=== PATIENT | male | born 1950 | race Caucasian/White ===

== ENCOUNTER 2017-01-17 18:31 | Inpatient (IN) | payer MEDICARE ==
[~2017-01-17] VITALS: Ht 188 cm; Wt 79.4 kg
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
--- NOTE | ~2017-01-17 | ECHO ---
Transthoracic Echocardiography Report (TTE) Demographics Patient Name MELI VEGA Date of Study 01/19/2017 Patient Number [id number] Visit Number [id number] Date of 1950 Room Number G6203 Gender Male Number Age 66 year(s) Referring Mynor Bryan Treasury Specialist Dorota Tran [facility], Physician Luis TRIPATHI RVT Physician Interpreting Efstratiou Line Camera Operator Physician Simi Robles MD Supervising Ordering Guillermina TRIPATHI/MARGARETP Physician Ida TRIPATHI Nurse Stress Spacer Type Bar And Segment Conclusions Summary Technically difficult exam due to chest tube and subcutaneous emphysema Unable to visual a pericardial window. The estimated left ventricular ejection fraction is 55-60%. The left atrium appears to be mildly dilated. Possible pericardial effusion adjacent to RV and RA. Pleural effusion present. Procedure Type of Study TTE procedure:2D Echocardiogram. Procedure Date Date: 01/19/2017 Start: 04:40 AM Study Location: Inpatient Portable Technical Quality: Poor visualization due to poor acoustical window. Appropriate Use Criteria: 9 Patient Status: STAT Rhythm: Sinus tachycardia HR: 82 bpm BP: 97/59 mmHg M-Mode/2D Measurements LV Diastolic Dimension: 3.69 cm LV Septum Systolic: 2.07 cm LV Septum Diastolic: 1.33 cm LV PW Diastolic: 1.04 cm Cardiac Output: 6.5 l/min LA volume: 71 ml RV Diastolic Dimension: 3.11 cm LVOT: 2.1 cm LVOT VTI: 22.9 cm IVC Inspiration: 1.33 cm LV Stroke volume: 79.28 ml RV Base: 3.02 cm RV Mid: 2.55 cm RV Length: 4.07 cm TAPSE: 1.35 cm TDI-S': 13.6 cm/s Doppler Measurements AV Peak Velocity: 1.76 m/s MV Peak E-Wave: 0.95 m/s AV Peak Gradient: 12.39 mmHg MV Peak A-Wave: 0.86 m/s AV Mean Gradient: 7 mmHg MV E/A Ratio: 1.1 LVOT Peak Velocity: 1.35 m/s MV P1/2t: 65 msec PV Peak Velocity: 0.98 m/s E' Septal Velocity: 0.12 m/s PV Peak Gradient: 3.85 mmHg E' Lateral Velocity: 0.09 m/s MV E/E' Ratio: 11 Findings Left Ventricle Mild septal left ventricular hypertrophy. Diastolic function indeterminate. Right Ventricle Normal right ventricle structure and function. Left Atrium Difficult to visualize left atrium The left atrium appears to be mildly dilated. Right Atrium The right atrium is mildly dilated. Mitral Valve Mitral valve not well visualized Aortic Valve The aortic valve is mildly sclerotic. Tricuspid Valve The tricuspid valve is not well visualized. Pulmonic Valve The pulmonic valve is not well visualized. Pericardial Effusion Possible pericardial effusion. Miscellaneous Visualized portions of the aortic root and ascending aorta appear normal in size. Pleural Effusion Pleural effusion present. Signature dtt: Mine Nam dtd: 01/19/17 0440 Physician Self Edit
--- NOTE | ~2017-01-17 | OR ---
PATIENT'S NAME: MELI VEGA [facility] AGE: 66 Y [address] ROOM: [place] [address] LOCATION: GICU ADMIT DATE: 01/17/2017 OR/Procedure Report DISCHARGE DATE: FAMILY PHYSICIAN: Nick Wang MD ATTENDING PHYSICIAN: Irvin Lowe SURGEON: John Rizo MD COMMUNITY HE[facility] PROGRAM COORDINATOR: DATE OF PROCEDURE: 01/19/2017 LOCATION: This procedure was performed in the intensive care unit. PREOPERATIVE DIAGNOSIS: Need for vascular access. POSTOPERATIVE DIAGNOSIS: Need for vascular access. PROCEDURE PERFORMED: Placement of left subclavian triple-lumen catheter. COMPLICATIONS: None. DESCRIPTION OF PROCEDURE: After informed consent was obtained, the patient was placed in the supine position with a bump under his shoulder blades and in the Trendelenburg position. A liter bolus of IV fluids was initiated to help with venous distention. The left neck and chest were sterilely prepped and draped. A time-out was performed prior to initiation of the procedure. Local anesthetic consisting of 1% lidocaine was injected first in the left deltopectoral fossa. The left subclavian vein was accessed. On the first attempt, there was difficulty passing the wire. Multiple subsequent attempts to gain venous access were unsuccessful. Attempt at left internal jugular vein placement showed minimal distention of the internal jugular vein by ultrasound. Two attempts to gain access to the internal jugular vein in the left neck were also unsuccessful. Attention was then turned back to the left subclavian site. Venous access was obtained, and a wire was introduced without difficulty. Slight ectopy without hemodynamic compromise was created. The tract was dilated with a dilator sheath. A triple-lumen catheter was advanced over the wire in a Seldinger technique. This was advanced to 16 [address] in place. Sterile dressings were applied. The catheter was flushed and aspirated easily. A postprocedure x-ray showed the central line in the innominate vein and the catheter was cleared for use. JOHN RIZO MD CM/modl PATIENT'S NAME: MELI VEGA [facility] AGE: 66 Y [address] ROOM: [address] [address] LOCATION: GICU ADMIT DATE: 01/17/2017 OR/Procedure Report DISCHARGE DATE: FAMILY PHYSICIAN: Nick Wang MD ATTENDING PHYSICIAN: Irvin Lowe /[id number] d: 01/19/17 185 t: 02/19/17 1445, OPERATIVE SUMMARY
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
--- NOTE | ~2017-01-17 | OR ---
PATIENT'S NAME: MELI VEGA [facility] AGE: 66 Y [address] ROOM: [place] [address] LOCATION: GICU ADMIT DATE: 01/17/2017 OR/Procedure Report DISCHARGE DATE: FAMILY PHYSICIAN: Nick Wang MD ATTENDING PHYSICIAN: Irvin Lowe SURGEON: Herve Gamboa MD COMPUTER SOFTWARE ENGINEER: DATE OF PROCEDURE: 02/01/2017 PREOPERATIVE DIAGNOSIS: Persistent drainage from left yozuv-awi-vorj amputation stump. POSTOPERATIVE DIAGNOSIS: Persistent drainage from left ytwcs-jnx-[id number] amputation stump. PROCEDURE: Revision of left BKA stump with VAC placement. SUPERVISOR PIPELINE MAINTENANCE: Sil Carter. ANESTHESIA: General. ESTIMATED BLOOD LOSS: 25 mL. OPERATIVE FINDINGS: Just small areas of necrotic tissue of skin removed. No active source of bleeding noticed within the wound. Wound VAC placed with good suction. DESCRIPTION OF PROCEDURE: The patient was brought to the operating room, placed supine on the operating table, and prepped and draped in a sterile manner. The patient received preoperative antibiotics. Preoperative time-out was performed. We opened up the lateral aspect of the BKA flap stump and immediately were greeted by healthy-appearing muscle with very little granulation tissue. We sharply debrided this muscle to see if there were any active sources of bleeding or any reasons for why there was continuous leakage of fluid from there. We did not find any. We then copiously irrigated. There was also a small patch of skin on the natanael-rectum middle part of the flap which did not appear viable and we resected away exposing also again muscle below this. We sharply debrided this muscle and copiously irrigated this wound. We then packed it with vacuum sponge and then placed it under suction. There was good seal. The patient tolerated the procedure well and awoken in the operating room and transferred to the recovery room and back to the floor. PATIENT'S NAME: MELI VEGA [facility] AGE: 66 Y [address] ROOM: [place] [address] LOCATION: GICU ADMIT DATE: 01/17/2017 OR/Procedure Report DISCHARGE DATE: FAMILY PHYSICIAN: Nick Wang MD ATTENDING PHYSICIAN: Irvin Lowe MD ANGELLA YEN/dhaval /[id number] d: 02/01/171939 t: 02/03/17 1120, OPERATIVE SUMMARY
--- NOTE | ~2017-01-17 | ENPV ---
Vascular Upper Extremities Veins Procedure Demographics Patient Name MELI VEGA Date of Study 01/24/2017 Patient Number [id number] Gender Male Date of 1950 Age 66 Visit Number [id number] Height Weight Number Room Number [id number] BSA BMI Referring Kathleen Nick Medina Interpreting Cyril Belcher Physician Physician A MD Mynor Smith MD Physician Ordering Cyril Belcher Food Tray Assembler Physician A Unscrambler Tito Upton, RVT Conclusions Summary No evidence of deep vein thrombosis in the left upper extremity. Acute occlusive superficial thrombus is visible in the left basilic vein from the mid upper arm to the mid forearm. The left distal forearm basilic vein was not imaged secondary to lines and dressings, cannot rule out thrombus in this vein segment. The left upper arm cephalic vein was not visualized, however is patent in the forearm. Procedure Type of Study: Veins:Upper Extremities Veins, Upper Extremity Left. Indications for Study:Unilateral pain and edema. Additional Indications:Left upper extremity pain and edema Appropriate Use Criteria:9 Patient Status:Routine. Study Location:Inpatient Portable. Technical Quality:Adequate visualization. - Preliminary reported to: @1300. Velocities are measured in cm/s ; Diameters are measured in cm Right UE Vein Measurements 2D and Doppler Measurements + + + + +--------+ + !Location !Visualized !Compressibility !Thrombosis !Signal !Reflux ! + + + + +--------+ + !SCV !Yes ! !None !Phasic !No ! + + + + +--------+ + Left UE Vein Measurements 2D and Doppler Measurements + + + + +--------+--------+ !Location !Visualized !Compressibility !Thrombosis !Signal !Reflux ! + + + + +--------+--------+ !IJV !Yes !Yes !None !Phasic !No ! + + + + +--------+--------+ !SCV !Yes ! !None !Phasic !No ! + + + + +--------+--------+ !Innominate !Yes ! !None !Phasic !No ! + + + + +--------+--------+ !Axillary !Yes !Yes !None !Phasic !No ! + + + + +--------+--------+ !Brachial !Yes !Yes !None !Phasic !No ! + + + + +--------+--------+ !Radial !Yes !Yes !None ! ! ! + + + + +--------+--------+ !Ulnar !Yes !Yes !None ! ! ! + + + + +--------+--------+ !Basilic !Yes !No !Acute !Absent ! ! + + + + +--------+--------+ !Cephalic !Yes !Yes !None ! ! ! + + + + +--------+--------+ Signature dtt: Mine Nam dtd: 01/24/17 1158 Physician Self Edit
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
--- NOTE | ~2017-01-17 | ECHO ---
Transthoracic Echocardiography Report (TTE) Demographics Patient Name MELI VEGA Date of Study 01/29/2017 Patient Number [id number] Visit Number [id number] Date of 1950 Room Number [id number] Gender Male Number Age 66 year(s) Referring Mynor Bryan [employer] Derrick García RDCS, Physician Luis TRIPATHI RVT, RDMS, [facility] Physician Interpreting Cyril Belcher Conference Coordinator Physician Travis TRIPATHI Supervising Ordering Cyril Belcher MD/MLP Physician A Nurse [facility] Medical Billing Service Conclusions Summary Limited study. The estimated left ventricular ejection fraction is 65-70%. The left ventricle is normal in size . Normal wall thickness and systolic function. Normal right ventricle structure and function. Moderate biatrial enlargement. Small anterior pericardial effusion. There is no echocardiographic evidence of cardiac tamponade. Bilateral pleural effusions are present. chest tube is in place and prevents apical views. Procedure Type of Study TTE procedure:M-Mode, Doppler , Echo Limited w/o Contrast. Procedure Date Date: 01/29/2017 Start: 11:14 AM Study Location: Inpatient Portable Technical Quality: Excellent Additional Indications:Trauma, chest tube Patient Status: Routine HR: 67 bpm BP: 116/56 mmHg M-Mode/2D Measurements LV Diastolic Dimension: 4.49 cm LV Systolic Dimension: 1.86 cm LV Septum Diastolic: 0.89 cm LV PW Diastolic: 0.82 cm RV Diastolic Dimension: 2.75 cm Post Pericard Effusion: 0.6 cm Findings Left Ventricle The left ventricle is normal in size . Normal wall thickness and systolic function. Right Ventricle Normal right ventricle structure and function. Left Atrium The left atrium is mildly to moderately dilated. Right Atrium The right atrium is moderately dilated. Pericardial Effusion Small anterior pericardial effusion. There is no echocardiographic evidence of cardiac tamponade. Miscellaneous Visualized portions of the aortic root and ascending aorta appear normal in size. Pleural Effusion Bilateral pleural effusions are present. chest tube is in place and prevents apical views. Signature dtt: Mine Nam dtd: 01/29/17 1114 Physician Self Edit
[2017-01-17 18:45] LABS: HEMATOCRIT 30.1 % (37.0-53.0); HEMOGLOBIN 10.5 g/dL (11.0-16.0); MCH 33.3 pg (27.0-34.0); MCHC 34.9 gm/dL (32.0-36.5); MCV 95.6 fl (83.0-98.0); MPV 10.2 fl (9.4-12.4); PLATELET COUNT 204 K/uL (150-450); RBC 3.15 M/uL (3.50-5.50); RDW-CV 13.8 % (11.9-14.6)
[2017-01-17 18:46] LABS: WBC 17.7 K/uL (4.0-11.0)
[2017-01-17 18:54] LABS: INR - (THERAPEUTIC) 1.21 (0.92-1.07); PROTIME 12.7 SECONDS (9.8-11.4); PTT 24 SECONDS (25-32)
[2017-01-17 18:58] LABS: BLOOD UREA NITROGEN 29 mg/dL (6-24); CHLORIDE 111 mMol/L (96-110); CREATININE 1.3 mg/dL (0.6-1.3)
[2017-01-17 19:08] LABS: BANDED NEUTROPHIL # 2.1 K/uL (0.0-0.1); BANDED NEUTROPHILS % 12 %; LYMPHOCYTE # 2.8 K/uL (0.8-4.0); LYMPHOCYTE % 16 %; MONOCYTE # 0.9 K/uL (0.0-1.0); SEGMENTED NEUTROPHIL # 11.9 K/uL (1.4-9.0); SEGMENTED NEUTROPHIL % 67 %
[2017-01-17 19:23] LABS: ANION GAP 11.1 (10.0-19.0); PCO2 26 mmHg (35-45); PO2 88 mmHg (80-90); POTASSIUM 4.1 mMol/L (3.7-5.1); SODIUM 138 mMol/L (135-145)
[2017-01-17] MEDS ORDERED: IRON65 PO (23:47)
[2017-01-18 00:58] LABS: HEMATOCRIT 35.5 % (37.0-53.0); HEMOGLOBIN 12.4 g/dL (11.0-16.0)
[2017-01-18 04:05] LABS: BICARBONATE 21.6 mmol/L (18.0-23.0); PCO2 42 mmHg (35-45); PO2 196 mmHg (80-90)
[2017-01-18 04:06] LABS: POTASSIUM 4.8 mEq/L (3.7-5.1); SODIUM 135 mEq/L (135-145)
[2017-01-18 05:21] LABS: HEMATOCRIT 34.5 % (37.0-53.0); HEMOGLOBIN 12.1 g/dL (11.0-16.0); MCH 31.6 pg (27.0-34.0); MCHC 35.1 gm/dL (32.0-36.5); MCV 90.1 fl (83.0-98.0); MPV 10.4 fl (9.4-12.4); PLATELET COUNT 144 K/uL (150-450); RBC 3.83 M/uL (3.50-5.50); RDW-CV 17.2 % (11.9-14.6); WBC 22.1 K/uL (4.0-11.0)
[2017-01-18 05:35] LABS: ALBUMIN 2.7 gm/dL (3.5-5.0); CALCIUM 7.6 mg/dL (8.5-10.5); CREATININE 1.8 mg/dL (0.6-1.3); POTASSIUM 4.9 mMol/L (3.7-5.1); TOTAL BILIRUBIN 0.7 mg/dL (0.0-1.5)
[2017-01-18 05:45] LABS: ABSOLUTE NEUTROPHIL CT (ANC) 20.1 K/uL (1.4-9.0); ANION GAP 13.9 (10.0-19.0); BANDED NEUTROPHIL # 4.6 K/uL (0.0-0.1); BANDED NEUTROPHILS % 21 %; LYMPHOCYTE # 0.9 K/uL (0.8-4.0); LYMPHOCYTE % 4 %; MONOCYTE # 1.1 K/uL (0.0-1.0); SEGMENTED NEUTROPHIL # 15.5 K/uL (1.4-9.0); SEGMENTED NEUTROPHIL % 70 %; TOTAL PROTEIN 4.6 g/dL (6.0-8.4)
[2017-01-18 09:11] LABS: HEMATOCRIT 34.1 % (37.0-53.0); HEMOGLOBIN 11.8 g/dL (11.0-16.0)
[2017-01-18 10:04] LABS: HEMATOCRIT 31.6 % (37.0-53.0); HEMOGLOBIN 11.1 g/dL (11.0-16.0)
[2017-01-18 16:02] LABS: HEMATOCRIT 31.3 % (37.0-53.0)
[2017-01-18 21:47] LABS: HEMATOCRIT 30.9 % (37.0-53.0); HEMOGLOBIN 10.6 g/dL (11.0-16.0)
[2017-01-19 03:28] LABS: HEMATOCRIT 29.5 % (37.0-53.0); HEMOGLOBIN 10.1 g/dL (11.0-16.0)
[2017-01-19 03:41] LABS: ANION GAP 12.6 (10.0-19.0); CALCIUM 7.3 mg/dL (8.5-10.5); POTASSIUM 5.6 mMol/L (3.7-5.1)
[2017-01-19 06:18] LABS: HEMATOCRIT 29.5 % (37.0-53.0); HEMOGLOBIN 10.1 g/dL (11.0-16.0); MCH 31.4 pg (27.0-34.0); MCHC 34.2 gm/dL (32.0-36.5); MCV 91.6 fl (83.0-98.0); MPV 10.8 fl (9.4-12.4); PLATELET COUNT 109 K/uL (150-450); RBC 3.22 M/uL (3.50-5.50); RDW-CV 17.3 % (11.9-14.6)
[2017-01-19 07:15] LABS: LYMPHOCYTE # 0.8 K/uL (0.8-4.0); LYMPHOCYTE % 4 %; MONOCYTE # 1.3 K/uL (0.0-1.0); SEGMENTED NEUTROPHIL # 13.7 K/uL (1.4-9.0); SEGMENTED NEUTROPHIL % 65 %
[2017-01-19 07:17] LABS: ABSOLUTE NEUTROPHIL CT (ANC) 18.9 K/uL (1.4-9.0); BANDED NEUTROPHIL # 5.3 K/uL (0.0-0.1); BANDED NEUTROPHILS % 25 %
[2017-01-19 07:53] LABS: ALBUMIN 2.5 gm/dL (3.5-5.0); CALCIUM 8.3 mg/dL (8.5-10.5); CREATININE 1.8 mg/dL (0.6-1.3)
[2017-01-19 08:10] LABS: ANION GAP 11.5 (10.0-19.0)
[2017-01-19 08:11] LABS: POTASSIUM 5.5 mMol/L (3.7-5.1); TOTAL BILIRUBIN 0.4 mg/dL (0.0-1.5); TOTAL PROTEIN 4.7 g/dL (6.0-8.4)
[2017-01-19 09:52] LABS: HEMATOCRIT 25.3 % (37.0-53.0); HEMOGLOBIN 8.9 g/dL (11.0-16.0)
[2017-01-19 09:56] LABS: ALBUMIN 2.3 gm/dL (3.5-5.0); CALCIUM 7.7 mg/dL (8.5-10.5); CREATININE 1.5 mg/dL (0.6-1.3); TOTAL BILIRUBIN 0.4 mg/dL (0.0-1.5)
[2017-01-19 10:03] LABS: ANION GAP 12.5 (10.0-19.0); TOTAL PROTEIN 4.2 g/dL (6.0-8.4)
[2017-01-19 10:04] LABS: POTASSIUM 5.5 mMol/L (3.7-5.1)
[2017-01-19 13:50] LABS: ANION GAP 8.8 (10.0-19.0); CREATININE 1.2 mg/dL (0.6-1.3); POTASSIUM 4.8 mMol/L (3.7-5.1)
[2017-01-19 17:49] LABS: HEMATOCRIT 22.5 % (37.0-53.0); MCH 31.3 pg (27.0-34.0); MCHC 33.8 gm/dL (32.0-36.5); MCV 92.6 fl (83.0-98.0); MPV 10.7 fl (9.4-12.4); PLATELET COUNT 102 K/uL (150-450); RBC 2.43 M/uL (3.50-5.50); RDW-CV 16.8 % (11.9-14.6)
[2017-01-19 17:50] LABS: HEMOGLOBIN 7.6 g/dL (11.0-16.0); WBC 16.3 K/uL (4.0-11.0)
[2017-01-19 18:01] LABS: INR - (THERAPEUTIC) 1.02 (0.92-1.07); PROTIME 10.7 SECONDS (9.8-11.4); PTT 28 SECONDS (25-32)
[2017-01-19 18:25] LABS: ABSOLUTE NEUTROPHIL CT (ANC) 15.3 K/uL (1.4-9.0); BANDED NEUTROPHIL # 4.6 K/uL (0.0-0.1); BANDED NEUTROPHILS % 28 %; LYMPHOCYTE # 0.3 K/uL (0.8-4.0); LYMPHOCYTE % 2 %; MONOCYTE # 0.7 K/uL (0.0-1.0); SEGMENTED NEUTROPHIL # 10.8 K/uL (1.4-9.0); SEGMENTED NEUTROPHIL % 66 %
[2017-01-20 04:56] LABS: ALBUMIN 2.2 gm/dL (3.5-5.0); ANION GAP 7.7 (10.0-19.0); CALCIUM 7.3 mg/dL (8.5-10.5); CREATININE 0.9 mg/dL (0.6-1.3); POTASSIUM 4.7 mMol/L (3.7-5.1); TOTAL BILIRUBIN 0.6 mg/dL (0.0-1.5); TOTAL PROTEIN 4.3 g/dL (6.0-8.4)
[2017-01-20 05:00] LABS: HEMATOCRIT 25.6 % (37.0-53.0); MCH 31.1 pg (27.0-34.0); MCHC 35.2 gm/dL (32.0-36.5); MCV 88.6 fl (83.0-98.0); MPV 10.8 fl (9.4-12.4); PLATELET COUNT 95 K/uL (150-450); RBC 2.89 M/uL (3.50-5.50); RDW-CV 17.1 % (11.9-14.6); WBC 13.5 K/uL (4.0-11.0)
[2017-01-20 05:41] LABS: ABSOLUTE NEUTROPHIL CT (ANC) 12.2 K/uL (1.4-9.0); BANDED NEUTROPHIL # 2.8 K/uL (0.0-0.1); BANDED NEUTROPHILS % 21 %; LYMPHOCYTE # 1.1 K/uL (0.8-4.0); LYMPHOCYTE % 8 %; MONOCYTE # 0.3 K/uL (0.0-1.0); SEGMENTED NEUTROPHIL # 9.3 K/uL (1.4-9.0); SEGMENTED NEUTROPHIL % 69 %
[2017-01-21 05:52] LABS: HEMATOCRIT 25.2 % (37.0-53.0); HEMOGLOBIN 8.6 g/dL (11.0-16.0); MCH 30.7 pg (27.0-34.0); MCHC 34.1 gm/dL (32.0-36.5); MPV 10.7 fl (9.4-12.4); PLATELET COUNT 114 K/uL (150-450); RDW-CV 17.2 % (11.9-14.6); WBC 11.2 K/uL (4.0-11.0)
[2017-01-21 05:54] LABS: ANION GAP 7.5 (10.0-19.0); BLOOD UREA NITROGEN 30 mg/dL (6-24); CALCIUM 7.1 mg/dL (8.5-10.5); CHLORIDE 110 mMol/L (96-110); CO2 29 mMol/L (22-32); CREATININE 0.8 mg/dL (0.6-1.3); POTASSIUM 4.5 mMol/L (3.7-5.1); SODIUM 142 mMol/L (135-145)
[2017-01-21 06:17] LABS: ABSOLUTE NEUTROPHIL CT (ANC) 10.4 K/uL (1.4-9.0); BANDED NEUTROPHILS % 9 %; LYMPHOCYTE # 0.3 K/uL (0.8-4.0); LYMPHOCYTE % 3 %; MONOCYTE # 0.4 K/uL (0.0-1.0); SEGMENTED NEUTROPHIL # 9.4 K/uL (1.4-9.0); SEGMENTED NEUTROPHIL % 84 %
[2017-01-22 05:24] LABS: HEMATOCRIT 27.6 % (37.0-53.0); HEMOGLOBIN 9.1 g/dL (11.0-16.0); MCV 91.1 fl (83.0-98.0); MPV 10.1 fl (9.4-12.4); PLATELET COUNT 155 K/uL (150-450); RBC 3.03 M/uL (3.50-5.50); WBC 12.1 K/uL (4.0-11.0)
[2017-01-22 05:30] LABS: ANION GAP 10.3 (10.0-19.0); BLOOD UREA NITROGEN 28 mg/dL (6-24); CALCIUM 7.1 mg/dL (8.5-10.5); CHLORIDE 108 mMol/L (96-110); CO2 29 mMol/L (22-32); CREATININE 0.8 mg/dL (0.6-1.3); POTASSIUM 4.3 mMol/L (3.7-5.1); SODIUM 143 mMol/L (135-145)
[2017-01-22 06:05] LABS: ABSOLUTE NEUTROPHIL CT (ANC) 10.5 K/uL (1.4-9.0); BANDED NEUTROPHIL # 0.7 K/uL (0.0-0.1); BANDED NEUTROPHILS % 6 %; LYMPHOCYTE # 0.7 K/uL (0.8-4.0); LYMPHOCYTE % 6 %; MONOCYTE # 0.7 K/uL (0.0-1.0); SEGMENTED NEUTROPHIL # 9.8 K/uL (1.4-9.0); SEGMENTED NEUTROPHIL % 81 %
[2017-01-23 07:55] LABS: BASOPHIL % 0.2 %; EOSINOPHIL # 0.2 K/uL (0.0-0.5); EOSINOPHIL % 1.6 %; HEMATOCRIT 28.8 % (37.0-53.0); HEMOGLOBIN 9.7 g/dL (11.0-16.0); IMMATURE GRANULOCYTE # 0.2 K/uL (0.0-0.3); IMMATURE GRANULOCYTE % 1.6 %; LYMPHOCYTE # 0.8 K/uL (0.8-4.0); LYMPHOCYTE % 6.4 %; MCH 31.2 pg (27.0-34.0); MCHC 33.7 gm/dL (32.0-36.5); MCV 92.6 fl (83.0-98.0); MONOCYTE # 0.9 K/uL (0.0-1.0); MONOCYTE % 7.2 %; MPV 10.2 fl (9.4-12.4); NEUTROPHIL # (ANC) 10.6 K/uL (1.4-9.0); NRBC % 0 /100WBC (0-0.00); RBC 3.11 M/uL (3.50-5.50); RDW-CV 16.3 % (11.9-14.6); WBC 12.7 K/uL (4.0-11.0)
[2017-01-23 08:03] LABS: PLATELET COUNT 207 K/uL (150-450)
[2017-01-23 08:19] LABS: ALK PHOS 50 IU/L (33-138); ALT 55 IU/L (12-78); ANION GAP 9.3 (10.0-19.0); AST 94 IU/L (10-40); BLOOD UREA NITROGEN 27 mg/dL (6-24); CHLORIDE 107 mMol/L (96-110); CO2 30 mMol/L (22-32); CREATININE 0.8 mg/dL (0.6-1.3); POTASSIUM 4.3 mMol/L (3.7-5.1); SODIUM 142 mMol/L (135-145); TOTAL BILIRUBIN 0.6 mg/dL (0.0-1.5)
[2017-01-23 08:26] LABS: ALBUMIN 1.6 gm/dL (3.5-5.0); CALCIUM 7.1 mg/dL (8.5-10.5); TOTAL PROTEIN 4.3 g/dL (6.0-8.4)
[2017-01-24 05:02] LABS: BASOPHIL % 0.1 %; EOSINOPHIL # 0.1 K/uL (0.0-0.5); EOSINOPHIL % 1.3 %; HEMATOCRIT 29.3 % (37.0-53.0); HEMOGLOBIN 9.9 g/dL (11.0-16.0); IMMATURE GRANULOCYTE # 0.2 K/uL (0.0-0.3); IMMATURE GRANULOCYTE % 1.7 %; LYMPHOCYTE # 0.8 K/uL (0.8-4.0); LYMPHOCYTE % 9.7 %; MCH 31.2 pg (27.0-34.0); MCHC 33.8 gm/dL (32.0-36.5); MCV 92.4 fl (83.0-98.0); MONOCYTE # 0.6 K/uL (0.0-1.0); MONOCYTE % 7.5 %; MPV 10.3 fl (9.4-12.4); NEUTROPHIL # (ANC) 6.9 K/uL (1.4-9.0); NEUTROPHIL % 79.7 %; NRBC % 0 /100WBC (0-0.00); PLATELET COUNT 257 K/uL (150-450); RBC 3.17 M/uL (3.50-5.50); RDW-CV 15.9 % (11.9-14.6); WBC 8.6 K/uL (4.0-11.0)
[2017-01-24 05:13] LABS: ANION GAP 9.5 (10.0-19.0); BLOOD UREA NITROGEN 21 mg/dL (6-24); CHLORIDE 107 mMol/L (96-110); CO2 28 mMol/L (22-32); CREATININE 0.8 mg/dL (0.6-1.3); MAGNESIUM 2.3 mg/dL (1.8-2.6); PHOSPHORUS 2.6 mg/dL (2.5-4.9); POTASSIUM 4.5 mMol/L (3.7-5.1); SODIUM 140 mMol/L (135-145)
[2017-01-24 05:14] LABS: ALBUMIN 1.6 gm/dL (3.5-5.0); CALCIUM 7.1 mg/dL (8.5-10.5)
[2017-01-25 05:19] LABS: BASOPHIL % 0.2 %; EOSINOPHIL # 0.1 K/uL (0.0-0.5); EOSINOPHIL % 0.7 %; HEMATOCRIT 27.8 % (37.0-53.0); HEMOGLOBIN 9.2 g/dL (11.0-16.0); IMMATURE GRANULOCYTE # 0.2 K/uL (0.0-0.3); IMMATURE GRANULOCYTE % 1.9 %; LYMPHOCYTE # 0.6 K/uL (0.8-4.0); LYMPHOCYTE % 5.9 %; MCH 30.4 pg (27.0-34.0); MCHC 33.1 gm/dL (32.0-36.5); MCV 91.7 fl (83.0-98.0); MONOCYTE # 0.7 K/uL (0.0-1.0); MPV 9.8 fl (9.4-12.4); NEUTROPHIL # (ANC) 7.9 K/uL (1.4-9.0); NEUTROPHIL % 84.3 %; NRBC % 0 /100WBC (0-0.00); RBC 3.03 M/uL (3.50-5.50); RDW-CV 15.8 % (11.9-14.6); WBC 9.4 K/uL (4.0-11.0)
[2017-01-25 05:21] LABS: PLATELET COUNT 313 K/uL (150-450)
[2017-01-25 05:37] LABS: ANION GAP 11.3 (10.0-19.0); BLOOD UREA NITROGEN 20 mg/dL (6-24); CHLORIDE 109 mMol/L (96-110); CO2 26 mMol/L (22-32); CREATININE 0.8 mg/dL (0.6-1.3); POTASSIUM 4.3 mMol/L (3.7-5.1); SODIUM 142 mMol/L (135-145)
[2017-01-26 06:22] LABS: BASOPHIL % 0.1 %; EOSINOPHIL # 0.1 K/uL (0.0-0.5); EOSINOPHIL % 1.2 %; HEMATOCRIT 28.5 % (37.0-53.0); HEMOGLOBIN 9.5 g/dL (11.0-16.0); IMMATURE GRANULOCYTE # 0.1 K/uL (0.0-0.3); IMMATURE GRANULOCYTE % 1.3 %; LYMPHOCYTE # 0.6 K/uL (0.8-4.0); MCH 31.1 pg (27.0-34.0); MCHC 33.3 gm/dL (32.0-36.5); MCV 93.4 fl (83.0-98.0); MONOCYTE # 0.6 K/uL (0.0-1.0); MONOCYTE % 6.4 %; MPV 9.8 fl (9.4-12.4); NEUTROPHIL # (ANC) 8.4 K/uL (1.4-9.0); NRBC % 0 /100WBC (0-0.00); PLATELET COUNT 374 K/uL (150-450); RBC 3.05 M/uL (3.50-5.50); RDW-CV 16.1 % (11.9-14.6); WBC 9.9 K/uL (4.0-11.0)
[2017-01-27 07:31] LABS: BASOPHIL % 0.2 %; EOSINOPHIL # 0.2 K/uL (0.0-0.5); EOSINOPHIL % 1.3 %; HEMATOCRIT 30.2 % (37.0-53.0); IMMATURE GRANULOCYTE # 0.2 K/uL (0.0-0.3); IMMATURE GRANULOCYTE % 1.3 %; LYMPHOCYTE # 0.6 K/uL (0.8-4.0); LYMPHOCYTE % 5.1 %; MCH 31.2 pg (27.0-34.0); MCHC 33.1 gm/dL (32.0-36.5); MCV 94.1 fl (83.0-98.0); MONOCYTE # 0.7 K/uL (0.0-1.0); MONOCYTE % 5.5 %; MPV 9.8 fl (9.4-12.4); NEUTROPHIL # (ANC) 10.9 K/uL (1.4-9.0); NEUTROPHIL % 86.6 %; NRBC % 0 /100WBC (0-0.00); PLATELET COUNT 477 K/uL (150-450); RBC 3.21 M/uL (3.50-5.50); RDW-CV 16.7 % (11.9-14.6); WBC 12.6 K/uL (4.0-11.0)
[2017-01-27 07:44] LABS: ANION GAP 9.3 (10.0-19.0); BLOOD UREA NITROGEN 20 mg/dL (6-24); CHLORIDE 114 mMol/L (96-110); CO2 25 mMol/L (22-32); CREATININE 0.7 mg/dL (0.6-1.3); MAGNESIUM 2.1 mg/dL (1.8-2.6); PHOSPHORUS 2.4 mg/dL (2.5-4.9); POTASSIUM 4.3 mMol/L (3.7-5.1); SODIUM 144 mMol/L (135-145)
[2017-01-27 07:45] LABS: ALBUMIN 1.7 gm/dL (3.5-5.0); CALCIUM 7.2 mg/dL (8.5-10.5)
[2017-01-28 08:59] LABS: BASOPHIL % 0.1 %; EOSINOPHIL # 0.2 K/uL (0.0-0.5); EOSINOPHIL % 1.4 %; HEMATOCRIT 32.2 % (37.0-53.0); HEMOGLOBIN 10.6 g/dL (11.0-16.0); IMMATURE GRANULOCYTE # 0.1 K/uL (0.0-0.3); LYMPHOCYTE # 0.7 K/uL (0.8-4.0); LYMPHOCYTE % 5.1 %; MCH 31.4 pg (27.0-34.0); MCHC 32.9 gm/dL (32.0-36.5); MCV 95.3 fl (83.0-98.0); MONOCYTE # 0.6 K/uL (0.0-1.0); MONOCYTE % 4.5 %; MPV 9.4 fl (9.4-12.4); NEUTROPHIL # (ANC) 12.5 K/uL (1.4-9.0); NEUTROPHIL % 87.9 %; NRBC % 0 /100WBC (0-0.00); RBC 3.38 M/uL (3.50-5.50); RDW-CV 17.3 % (11.9-14.6); WBC 14.2 K/uL (4.0-11.0)
[2017-01-28 09:02] LABS: PLATELET COUNT 585 K/uL (150-450)
[2017-01-28 09:12] LABS: ANION GAP 10.1 (10.0-19.0); BLOOD UREA NITROGEN 19 mg/dL (6-24); CHLORIDE 111 mMol/L (96-110); CO2 26 mMol/L (22-32); CREATININE 0.8 mg/dL (0.6-1.3); POTASSIUM 4.1 mMol/L (3.7-5.1); SODIUM 143 mMol/L (135-145)
[2017-01-28 09:13] LABS: CALCIUM 7.3 mg/dL (8.5-10.5)
[2017-01-29 09:08] LABS: BASOPHIL % 0.2 %; EOSINOPHIL # 0.1 K/uL (0.0-0.5); HEMOGLOBIN 10.1 g/dL (11.0-16.0); IMMATURE GRANULOCYTE # 0.1 K/uL (0.0-0.3); IMMATURE GRANULOCYTE % 0.9 %; LYMPHOCYTE # 0.8 K/uL (0.8-4.0); LYMPHOCYTE % 5.3 %; MCH 31.4 pg (27.0-34.0); MCHC 32.6 gm/dL (32.0-36.5); MCV 96.3 fl (83.0-98.0); MONOCYTE # 0.7 K/uL (0.0-1.0); MONOCYTE % 4.9 %; MPV 9.3 fl (9.4-12.4); NEUTROPHIL # (ANC) 12.6 K/uL (1.4-9.0); NEUTROPHIL % 87.7 %; NRBC % 0 /100WBC (0-0.00); PLATELET COUNT 631 K/uL (150-450); RBC 3.22 M/uL (3.50-5.50); RDW-CV 17.5 % (11.9-14.6); WBC 14.4 K/uL (4.0-11.0)
[2017-01-29 09:22] LABS: ANION GAP 10.1 (10.0-19.0); CREATININE 0.9 mg/dL (0.6-1.3); POTASSIUM 4.1 mMol/L (3.7-5.1)
[2017-01-29 09:23] LABS: CALCIUM 7.4 mg/dL (8.5-10.5)
[2017-01-29 11:32] LABS: TOTAL BILIRUBIN 0.6 mg/dL (0.0-1.5)
[2017-01-29 11:33] LABS: ALBUMIN 1.8 gm/dL (3.5-5.0); TOTAL PROTEIN 4.3 g/dL (6.0-8.4)
[2017-01-30 09:20] LABS: BASOPHIL % 0.2 %; EOSINOPHIL # 0.1 K/uL (0.0-0.5); EOSINOPHIL % 0.9 %; HEMATOCRIT 31.1 % (37.0-53.0); IMMATURE GRANULOCYTE # 0.1 K/uL (0.0-0.3); IMMATURE GRANULOCYTE % 0.8 %; LYMPHOCYTE # 0.9 K/uL (0.8-4.0); LYMPHOCYTE % 6.5 %; MCH 31.1 pg (27.0-34.0); MCHC 32.2 gm/dL (32.0-36.5); MCV 96.6 fl (83.0-98.0); MONOCYTE # 0.7 K/uL (0.0-1.0); MONOCYTE % 5.1 %; MPV 8.8 fl (9.4-12.4); NEUTROPHIL # (ANC) 12.3 K/uL (1.4-9.0); NEUTROPHIL % 86.5 %; NRBC % 0 /100WBC (0-0.00); PLATELET COUNT 658 K/uL (150-450); RBC 3.22 M/uL (3.50-5.50); RDW-CV 18.1 % (11.9-14.6); WBC 14.2 K/uL (4.0-11.0)
[2017-01-30 09:32] LABS: ANION GAP 11.1 (10.0-19.0); CREATININE 0.9 mg/dL (0.6-1.3); POTASSIUM 4.1 mMol/L (3.7-5.1)
[2017-01-30 09:38] LABS: CALCIUM 7.4 mg/dL (8.5-10.5)
[2017-02-01 05:15] LABS: BASOPHIL % 0.3 %; EOSINOPHIL # 0.2 K/uL (0.0-0.5); EOSINOPHIL % 2.4 %; HEMATOCRIT 29.5 % (37.0-53.0); HEMOGLOBIN 9.6 g/dL (11.0-16.0); IMMATURE GRANULOCYTE # 0.1 K/uL (0.0-0.3); IMMATURE GRANULOCYTE % 0.7 %; LYMPHOCYTE # 0.8 K/uL (0.8-4.0); LYMPHOCYTE % 9.1 %; MCH 31.8 pg (27.0-34.0); MCHC 32.5 gm/dL (32.0-36.5); MCV 97.7 fl (83.0-98.0); MONOCYTE # 0.8 K/uL (0.0-1.0); MONOCYTE % 8.6 %; MPV 9.1 fl (9.4-12.4); NEUTROPHIL # (ANC) 7.3 K/uL (1.4-9.0); NEUTROPHIL % 78.9 %; NRBC % 0 /100WBC (0-0.00); PLATELET COUNT 643 K/uL (150-450); RBC 3.02 M/uL (3.50-5.50); WBC 9.2 K/uL (4.0-11.0)
[2017-02-01 05:28] LABS: ANION GAP 9.3 (10.0-19.0); BLOOD UREA NITROGEN 21 mg/dL (6-24); CHLORIDE 108 mMol/L (96-110); CO2 28 mMol/L (22-32); CREATININE 0.8 mg/dL (0.6-1.3); POTASSIUM 4.3 mMol/L (3.7-5.1); SODIUM 141 mMol/L (135-145)
[2017-02-01 05:31] LABS: CALCIUM 7.2 mg/dL (8.5-10.5)
[2017-02-02 05:58] LABS: BASOPHIL % 0.2 %; EOSINOPHIL % 0.2 %; HEMATOCRIT 28.5 % (37.0-53.0); HEMOGLOBIN 9.2 g/dL (11.0-16.0); IMMATURE GRANULOCYTE % 0.4 %; LYMPHOCYTE # 0.6 K/uL (0.8-4.0); LYMPHOCYTE % 6.9 %; MCH 31.7 pg (27.0-34.0); MCHC 32.3 gm/dL (32.0-36.5); MCV 98.3 fl (83.0-98.0); MONOCYTE # 0.6 K/uL (0.0-1.0); MONOCYTE % 7.6 %; MPV 9.2 fl (9.4-12.4); NEUTROPHIL # (ANC) 6.9 K/uL (1.4-9.0); NEUTROPHIL % 84.7 %; NRBC % 0 /100WBC (0-0.00); PLATELET COUNT 598 K/uL (150-450); RDW-CV 18.2 % (11.9-14.6); WBC 8.2 K/uL (4.0-11.0)
[2017-02-02 06:16] LABS: ANION GAP 9.3 (10.0-19.0); BLOOD UREA NITROGEN 20 mg/dL (6-24); CALCIUM 7.5 mg/dL (8.5-10.5); CHLORIDE 108 mMol/L (96-110); CO2 28 mMol/L (22-32); CREATININE 0.8 mg/dL (0.6-1.3); POTASSIUM 4.3 mMol/L (3.7-5.1); SODIUM 141 mMol/L (135-145)
[2017-02-03 05:41] LABS: ANION GAP 10.4 (10.0-19.0); CALCIUM 7.1 mg/dL (8.5-10.5); CREATININE 0.9 mg/dL (0.6-1.3); POTASSIUM 4.4 mMol/L (3.7-5.1)
[2017-02-03 05:57] LABS: BASOPHIL % 0.4 %; EOSINOPHIL # 0.2 K/uL (0.0-0.5); EOSINOPHIL % 2.1 %; HEMATOCRIT 30.7 % (37.0-53.0); HEMOGLOBIN 10.1 g/dL (11.0-16.0); IMMATURE GRANULOCYTE % 0.5 %; LYMPHOCYTE # 0.8 K/uL (0.8-4.0); LYMPHOCYTE % 9.7 %; MCH 32.2 pg (27.0-34.0); MCHC 32.9 gm/dL (32.0-36.5); MCV 97.8 fl (83.0-98.0); MONOCYTE # 0.7 K/uL (0.0-1.0); MONOCYTE % 8.8 %; NEUTROPHIL # (ANC) 6.1 K/uL (1.4-9.0); NEUTROPHIL % 78.5 %; NRBC % 0 /100WBC (0-0.00); PLATELET COUNT 626 K/uL (150-450); RBC 3.14 M/uL (3.50-5.50); RDW-CV 18.6 % (11.9-14.6); WBC 7.8 K/uL (4.0-11.0)
[2017-02-05 04:52] LABS: BASOPHIL % 0.4 %; EOSINOPHIL # 0.2 K/uL (0.0-0.5); HEMATOCRIT 31.8 % (37.0-53.0); HEMOGLOBIN 10.3 g/dL (11.0-16.0); IMMATURE GRANULOCYTE % 0.4 %; LYMPHOCYTE # 0.9 K/uL (0.8-4.0); LYMPHOCYTE % 11.6 %; MCHC 32.4 gm/dL (32.0-36.5); MCV 98.8 fl (83.0-98.0); MONOCYTE # 0.6 K/uL (0.0-1.0); MONOCYTE % 8.5 %; NEUTROPHIL # (ANC) 5.8 K/uL (1.4-9.0); NEUTROPHIL % 77.1 %; NRBC % 0 /100WBC (0-0.00); PLATELET COUNT 590 K/uL (150-450); RBC 3.22 M/uL (3.50-5.50); RDW-CV 18.6 % (11.9-14.6); WBC 7.6 K/uL (4.0-11.0)
[2017-02-05 05:05] LABS: ANION GAP 9.5 (10.0-19.0); BLOOD UREA NITROGEN 16 mg/dL (6-24); CALCIUM 7.5 mg/dL (8.5-10.5); CHLORIDE 109 mMol/L (96-110); CO2 28 mMol/L (22-32); CREATININE 0.7 mg/dL (0.6-1.3); POTASSIUM 4.5 mMol/L (3.7-5.1); SODIUM 142 mMol/L (135-145)
[2017-02-06 05:58] LABS: ANION GAP 9.4 (10.0-19.0); BLOOD UREA NITROGEN 18 mg/dL (6-24); CHLORIDE 110 mMol/L (96-110); CO2 27 mMol/L (22-32); CREATININE 0.7 mg/dL (0.6-1.3); POTASSIUM 4.4 mMol/L (3.7-5.1); SODIUM 142 mMol/L (135-145)
[2017-02-06 05:59] LABS: CALCIUM 7.4 mg/dL (8.5-10.5)
[2017-02-06 06:20] LABS: BASOPHIL % 0.4 %; EOSINOPHIL # 0.2 K/uL (0.0-0.5); EOSINOPHIL % 2.2 %; HEMATOCRIT 30.4 % (37.0-53.0); HEMOGLOBIN 9.7 g/dL (11.0-16.0); IMMATURE GRANULOCYTE % 0.5 %; LYMPHOCYTE # 0.8 K/uL (0.8-4.0); MCH 31.4 pg (27.0-34.0); MCHC 31.9 gm/dL (32.0-36.5); MCV 98.4 fl (83.0-98.0); MONOCYTE # 0.6 K/uL (0.0-1.0); MONOCYTE % 7.9 %; MPV 8.9 fl (9.4-12.4); NEUTROPHIL # (ANC) 5.9 K/uL (1.4-9.0); NRBC % 0 /100WBC (0-0.00); PLATELET COUNT 560 K/uL (150-450); RBC 3.09 M/uL (3.50-5.50); RDW-CV 18.4 % (11.9-14.6); WBC 7.6 K/uL (4.0-11.0)
[2017-02-07 04:29] LABS: BASOPHIL % 0.3 %; EOSINOPHIL # 0.2 K/uL (0.0-0.5); EOSINOPHIL % 2.1 %; HEMATOCRIT 30.3 % (37.0-53.0); HEMOGLOBIN 9.8 g/dL (11.0-16.0); IMMATURE GRANULOCYTE % 0.5 %; LYMPHOCYTE # 1.1 K/uL (0.8-4.0); LYMPHOCYTE % 14.1 %; MCH 32.6 pg (27.0-34.0); MCHC 32.3 gm/dL (32.0-36.5); MCV 100.7 fl (83.0-98.0); MONOCYTE # 0.6 K/uL (0.0-1.0); MONOCYTE % 8.5 %; NEUTROPHIL # (ANC) 5.6 K/uL (1.4-9.0); NEUTROPHIL % 74.5 %; NRBC % 0 /100WBC (0-0.00); PLATELET COUNT 500 K/uL (150-450); RBC 3.01 M/uL (3.50-5.50); RDW-CV 18.3 % (11.9-14.6); WBC 7.5 K/uL (4.0-11.0)
[2017-02-07 04:45] LABS: ANION GAP 8.7 (10.0-19.0); BLOOD UREA NITROGEN 21 mg/dL (6-24); CHLORIDE 109 mMol/L (96-110); CO2 30 mMol/L (22-32); CREATININE 0.8 mg/dL (0.6-1.3); POTASSIUM 4.7 mMol/L (3.7-5.1); SODIUM 143 mMol/L (135-145)
[2017-02-07 04:46] LABS: CALCIUM 7.4 mg/dL (8.5-10.5)
== END 2017-02-07 09:22 | DRG 957 ==
LOC: GACC 18:31 → GICU 19:09 → G3N 02-04 15:35
PROVIDERS: Anesthesiology; Emergency Medicine; Internal Medicine; Internal Medicine Cardiovascular Disease; Physician Assistant; ADMIT Surgery
PROC: 0Y6J0Z3 Detachment at Left Lower Leg, Low, Open Approach (ICD-10-PCS; principal; 2017-01-17)
PROC: 05H633Z Insertion of Infusion Device into Left Subclavian Vein, Percutaneous Approach (ICD-10-PCS; 2017-01-19)
PROC: 0QS Lower Bones, Reposition (ICD-10-PCS; 2017-01-20)
PROC: 0HQLXZZ Repair Left Lower Leg Skin, External Approach (ICD-10-PCS; 2017-02-01)
DX: S06.9X0A Unspecified intracranial injury without loss of consciousness, initial encounter (principal); S27.2XXA Traumatic hemopneumothorax, initial encounter; J69.0 Pneumonitis due to inhalation of food and vomit; S82.292B Other fracture of shaft of left tibia, initial encounter for open fracture type I or II; S32.492A Other specified fracture of left acetabulum, initial encounter for closed fracture; N17.9 Acute kidney failure, unspecified; S36.113A Laceration of liver, unspecified degree, initial encounter; I95.9 Hypotension, unspecified; S32.018A Other fracture of first lumbar vertebra, initial encounter for closed fracture; M62.82 Rhabdomyolysis; I30.9 Acute pericarditis, unspecified; S22.42XA Multiple fractures of ribs, left side, initial encounter for closed fracture; S32.028A Other fracture of second lumbar vertebra, initial encounter for closed fracture; S32.038A Other fracture of third lumbar vertebra, initial encounter for closed fracture; S32.048A Other fracture of fourth lumbar vertebra, initial encounter for closed fracture; S32.058A Other fracture of fifth lumbar vertebra, initial encounter for closed fracture; S32.19XA Other fracture of sacrum, initial encounter for closed fracture; D62 Acute posthemorrhagic anemia; R65.10 Systemic inflammatory response syndrome (SIRS) of non-infectious origin without acute organ dysfunction; V86.09XA Driver of other special all-terrain or other off-road motor vehicle injured in traffic accident, initial encounter; Y93.I9 Activity, other involving external motion; Y92.488 Other paved roadways as the place of occurrence of the external cause; E78.5 Hyperlipidemia, unspecified; E83.39 Other disorders of phosphorus metabolism; I48.91 Unspecified atrial fibrillation
CPT/HCPCS: C1713; C1751; C9113; G0480; J0131; J0282; J0610; J0690; J1160; J1170; J1630; J1644; J1650; J2060; J2405; J2543; J3480; J7030; J7040; J7050; J7060; J7120; P9016; P9045; Q9967

== ENCOUNTER → 2017-01-17 | Outpatient (CLI) | payer MEDICARE ==
[~2017-01-17] MED LIST: IRON65 PO
== END | disposition disaster alternative care site (69) ==
LOC: GAMB 17:56
DX: S27.0XXA Traumatic pneumothorax, initial encounter (principal); S81.801A Unspecified open wound, right lower leg, initial encounter; S89.91XA Unspecified injury of right lower leg, initial encounter; S00.12XA Contusion of left eyelid and periocular area, initial encounter; M54.9 Dorsalgia, unspecified; M79.605 Pain in left leg; G89.11 Acute pain due to trauma; R06.02 Shortness of breath; Z89.612 Acquired absence of left leg above knee; V39.9XXA Occupant (driver) (passenger) of three-wheeled motor vehicle injured in unspecified traffic accident, initial encounter
CPT/HCPCS: A0422; A0425; A0433